=== PATIENT | male | born 1960 | race Caucasian/White ===

== ENCOUNTER 2017-03-30 09:53 | Inpatient (IN) | payer BC, OTHER ==
[~2017-03-30] VITALS: Ht 170.2 cm; Wt 150.1 kg
--- NOTE | 2017-03-30 10:18 | EMERGENCY ROOM VISIT NOTE ---
History First contact with patient: 10:04 (Christiano Thomas PA-C) Chief Complaint: LEG PAIN,LEG INJURY Stated Complaint: LEG PAIN History of Present Illness The patient is a 56 year old male who presents to the Emergency Room via private vehicle with complaints of "leg pain, leg injury ankle. 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 Type II diabetic, and is concerned he may have a clot, or infection. He states that the pain has been progressing. He denies any chest pain, or shortness of breath. There is a strong family history of DVT. (Christiano Thomas PA-C) Review of Systems A complete 10-point Review of Systems was discussed with the patient, with pertinent positives and negatives listed in the History of Present Illness. All remaining Review of Systems questions can be considered negative unless otherwise specified. (Christiano Thomas PA-C) Past Medical/Surgical History Medical Problems: (1) Cellulitis (Mini Cota DO) Type 2 dm (Christiano Thomas PA-C) Family History DVT (Christiano Thomas PA-C) Social History Smoking Status: Current Every Day Smoker Pt. is a truck driver supervisor (Christiano Thomas PA-C) Current/Historical Medications Scheduled Aspirin (Aspirin Ec), 81 MG PO DAILY Atorvastatin (Atorvastatin Calcium), 40 MG PO DAILY Irbesartan-Hydrochlorothiazide (Avalide), 1 TAB PO DAILY Metformin HCl (Metformin HCl), 1,000 MG PO BIDM Multiple Vitamins W/ Minerals (Centrum Silver), 1 TAB PO DAILY Spironolactone (Aldactone), 25 MG PO DAILY Tamsulosin Hcl (Flomax), 0.4 MG PO DAILY Physical Exam Vital Signs Date Time Temp Pulse Resp B/P (MAP) Pulse Ox O2 Delivery O2 Flow Rate FiO2 03/30/17 12:56 20 98/43 95 03/30/17 11:36 80 20 116/71 95 Room Air 03/30/17 09:58 36.7 97 20 125/71 94 Room Air (Mini Cota DO) Physical Exam VITAL SIGNS - Vital signs and nursing notes were reviewed. Stable. GENERAL - 56-year-old male appearing his stated age who is in no acute distress. Communicates well with provider and answers questions appropriately. SKIN - R anterior murray erythema. HEAD - NC/AT. EYES - Sclera anicteric. EARS - No deformities of external structures noted on gross examination bilaterally. NOSE - Midline and without cyanosis. No epistaxis or purulent drainage noted. MOUTH/OROPHARYNX - Without perioral cyanosis. NECK - Neck with FROM. Supple to palpation. CARDIAC - RRR with S1/S2. No murmur, rubs, or gallops appreciated. EXTREMITIES - No clubbing or peripheral cyanosis. No pretibial edema present. There is a right anterior murray erythematous rash. Calf tenderness. +5/5 strength noted in UE/LE bilaterally. NEUROLOGIC - Cranial nerves II through XII grossly intact. Sensory intact to light touch throughout. (Christiano Thomas PA-C) Medical Decision & Procedures ER Provider Diagnostic Interpretation: R VENOUS DOPP LOWER EXT UNILAT HISTORY: 56 years-old Male R leg erythema, edema, pain acute right leg pain and edema COMPARISON: None available TECHNIQUE: Multiple real-time sonographic images of the right lower extremity deep venous system were obtained assessing grayscale appearance and color flow. FINDINGS: There is normal flow, compressibility, phasicity and augmentation within the right lower extremity deep venous system. There is minimal linear increased echogenicity within the proximal aspect of the popliteal vein. IMPRESSION: 1. No sonographic evidence of occlusive deep venous thrombosis within the right lower extremity. 2. Minimal linear increased echogenicity within the proximal aspect of the popliteal vein is suspicious for fibrin stranding from chronic deep venous thrombosis. The above report was generated using voice recognition software. It may contain grammatical, syntax or spelling errors. Electronically signed by: Tarun Barrios M.D. 03/30/2017 11:19 AM Dictated Date/Time: 03/30/2017 11:17 AM (Christiano Thomas PA-C) Laboratory Results 03/30/17 10:10 Red Blood Count 4.57, Mean Corpuscular Volume 81.8, Mean Corpuscular Hemoglobin 28.2, Mean Corpuscular Hemoglobin Concent 34.5, Mean Platelet Volume 9.5, Neutrophils (%) (Auto) 84.5, Lymphocytes (%) (Auto) 8.2, Monocytes (%) (Auto) 6.6, Eosinophils (%) (Auto) 0.2, Basophils (%) (Auto) 0.2, Neutrophils # (Auto) 16.52, Lymphocytes # (Auto) 1.61, Monocytes # (Auto) 1.29, Eosinophils # (Auto) 0.03, Basophils # (Auto) 0.04 03/30/17 10:10 Test 03/30/17 10:10 03/30/17 11:06 White Blood Count 19.55 K/uL (4.8-10.8) Red Blood Count 4.57 M/uL (4.7-6.1) Hemoglobin 12.9 g/dL (14.0-18.0) Hematocrit 37.4 % (42-52) Mean Corpuscular Volume 81.8 fL (80-100) Mean Corpuscular Hemoglobin 28.2 pg (25-34) Mean Corpuscular Hemoglobin Concent 34.5 g/dl (32-36) Platelet Count 265 K/uL (130-400) Mean Platelet Volume 9.5 fL (7.4-10.4) Neutrophils (%) (Auto) 84.5 % Lymphocytes (%) (Auto) 8.2 % Monocytes (%) (Auto) 6.6 % Eosinophils (%) (Auto) 0.2 % Basophils (%) (Auto) 0.2 % Neutrophils # (Auto) 16.52 K/uL (1.4-6.5) Lymphocytes # (Auto) 1.61 K/uL (1.2-3.4) Monocytes # (Auto) 1.29 K/uL (0.11-0.59) Eosinophils # (Auto) 0.03 K/uL (0-0.5) Basophils # (Auto) 0.04 K/uL (0-0.2) RDW Standard Deviation 47.0 fL (36.4-46.3) RDW Coefficient of Variation 15.8 % (11.5-14.5) Immature Granulocyte % (Auto) 0.3 % Immature Granulocyte # (Auto) 0.06 K/uL (0.00-0.02) Anion Gap 9.0 mmol/L (3-11) Est Creatinine Clear Calc Drug Dose 116.8 ml/min Estimated GFR () 96.1 Estimated GFR (Non- 82.9 BUN/Creatinine Ratio 13.5 (10-20) Calcium Level 8.8 mg/dl (8.5-10.1) Total Bilirubin 0.8 mg/dl (0.2-1) Aspartate Amino Transf (AST/SGOT) 14 U/L (15-37) Alanine Aminotransferase (ALT/SGPT) 36 U/L (12-78) Alkaline Phosphatase 88 U/L (45-117) Total Protein 7.1 gm/dl (6.4-8.2) Albumin 3.3 gm/dl (3.4-5.0) Globulin 3.8 gm/dl (2.5-4.0) Albumin/Globulin Ratio 0.9 (0.9-2) Bedside Lactic Acid Venous 1.37 mmol/L (0.90-1.70) (Mini Cota, ) Medications Administered Medications (Trade) Dose Ordered Sig/Obie Route Start Time Stop Time Status Last Admin Dose Admin Acetaminophen (Tylenol Tab) 500 mg NOW STAT PO 03/30/17 11:13 03/30/17 11:14 DC 03/30/17 11:45 500 MG Piperacillin Sod/ Tazobactam Sod (Zosyn Iv) 4.5 gm NOW STAT IV 03/30/17 11:32 03/30/17 11:34 DC 03/30/17 11:58 4.5 GM Vancomycin HCl 2750 mg/Sodium Chloride 555 ml @ 208.125 mls/hr NOW ONCE IV 03/30/17 11:45 03/30/17 14:24 DC 03/30/17 12:55 208.125 MLS/HR (Mini Cota, ) Medical Decision Patient was seen and evaluated as above. After obtaining a thorough history and physical examination IV access was initiated, and the above workup was performed. On exam was obtained and reveals no acute DVT, however there is question about underlying DVT. Clinically he has cellulitis. White blood cell count high at 19.55, there is an anemia with hemoglobin of 12.9. Patient's metabolic panel reveals creatinine of 1.02, no evidence of liver failure. Point care lactic was normal. At this time I believe the patient should be admitted for further evaluation and management. He was given vancomycin and Zosyn as well as Tylenol. Case was discussed with the attending physician, and subsequent with the hospitalist. Please refer to further documentation regarding his stay. In evaluation treatment this patient the following differential diagnoses were entertained: DVT, cellulitis, abscess, among others. (Christiano Thomas, PA-C) Impression Primary Impression: Cellulitis Additional Impression: Anemia Departure Information Dispostion Admitted as an inpatient Condition FAIR Patient Instructions My [facility] History I did see this pt, however not in correlation to this PA as he is supervised by the ED physician. PA has left for the evening, I did make ED charge nurse aware of this error. (Mini Cota, ) Assessment/Plan 56 y/o M who was admitted on 03/30 for R LE cellulitis R LE cellulitis: started on vanco/zosyn in the ED, will change to ceftriaxone given this is pt's first episode of cellulitis LE US neg for acute DVT WBC elevated Blood cx pending ?? chronic LE DVT: noted on US, no hx of prior Discussed with Makayla Clarke of vasc surgery, Dr. Doe is out of town until tomorrow but they will review images at that time Formal c/s will need placed if there is concern that will need addressed in our system given pt is from [place] and can likely f/u with this with providers in his area upon return Pt does take aspirin 81mg daily at baseline ?? of chronic DVT becoming painful due to inflammation related to infection?? Color of LE is WNL with good pulses and warm to touch. I do not think this is an acute concern at that time DM: BS in ED is 118 Does not check at home as he is on PO meds only A1c pending Will continue metformin given no issues with PO + SSI PRN HTN: continue home meds CAD: s/p stent 1.5-2 years ago Continue aspirin MIRA: has home CPAP with him, can use BPH: continue home meds Tobacco use: decline nicotine patch at this time PRN Other: Full code SCDs on L for DVT proph DM AHA diet CM: Pt is a truck driver supervisor from [place] and planning to return to that area for further care once able for d/c. (Mini Cota DO) Problem Qualifiers
[2017-03-30] MEDS ORDERED: GLC500 PO (10:38)
[2017-03-30] MEDS ORDERED: IRBE-41 PO (10:38)
[2017-03-30] MEDS ORDERED: SPIR25TA PO (10:38)
[2017-03-30] MEDS ORDERED: TAMS0.4C38 PO (10:38)
[2017-03-30] MEDS ORDERED: MULTCHW PO (10:38)
[2017-03-30] MEDS ORDERED: ASPI81TA28 PO (10:38)
[2017-03-30] MEDS ORDERED: LPT40 PO (10:38)
[2017-03-30 10:56] LABS: BASO % 0.2 %; BASO ABS # 0.04 K/uL (0-0.2); COMPLETE YES; EOS % 0.2 %; HEMATOCRIT 37.4 % (42-52); IG% 0.3 %; LYMPH % 8.2 %; LYMPH ABS # 1.61 K/uL (1.2-3.4); MEAN CELL VOLUME 81.8 fL (80-100); MEAN CORPUSCULAR HEMOGLOBIN 28.2 pg (25-34); MEAN CORPUSCULAR HGB CONC 34.5 g/dl (32-36); MEAN PLATELET VOLUME 9.5 fL (7.4-10.4); MONO % 6.6 %; NEUT % 84.5 %; PLATELET COUNT 265 K/uL (130-400); RED BLOOD COUNT 4.57 M/uL (4.7-6.1); WHITE BLOOD COUNT 19.55 K/uL (4.8-10.8)
[2017-03-30 11:10] LABS: BUN/CREATININE RATIO 13.5 (10-20); CALCIUM 8.8 mg/dl (8.5-10.1); CREATININE 1.02 mg/dl (0.60-1.40); POTASSIUM 3.6 mmol/L (3.5-5.1)
[2017-03-30 11:12] LABS: ALB/GLOB RATIO 0.9 (0.9-2)
[2017-03-30] MEDS ORDERED: ACETAMINOPHEN 500 MG TAB PO STA (11:13)
--- NOTE | 2017-03-30 11:21 | DIAGNOSTIC IMAGING REPORT ---
R VENOUS DOPP LOWER EXT UNILAT HISTORY: 56 years-old Male R leg erythema, edema, pain acute right leg pain and edema COMPARISON: None available TECHNIQUE: Multiple real-time sonographic images of the right lower extremity deep venous system were obtained assessing grayscale appearance and color flow. FINDINGS: There is normal flow, compressibility, phasicity and augmentation within the right lower extremity deep venous system. There is minimal linear increased echogenicity within the proximal aspect of the popliteal vein. IMPRESSION: 1. No sonographic evidence of occlusive deep venous thrombosis within the right lower extremity. 2. Minimal linear increased echogenicity within the proximal aspect of the popliteal vein is suspicious for fibrin stranding from chronic deep venous thrombosis. The above report was generated using voice recognition software. It may contain grammatical, syntax or spelling errors. Electronically signed by: Tarun Barrios M.D. 03/30/2017 11:19 AM Dictated Date/Time: 03/30/2017 11:17 AM
[2017-03-30] MEDS ORDERED: VANCOMYCIN INJ 2,750 MG in SODIUM CHLORIDE 0.9% 250ML 250 ML IV STA (11:32)
[2017-03-30] MEDS ORDERED: PIPERACILLIN/TAZOBACTAM 4.5 GM/100ML D5W IV STA (11:32)
[2017-03-30] MEDS ORDERED: VANCOMYCIN INJ 2,750 MG in SODIUM CHLORIDE 0.9% 500ML 500 ML IV ONE (11:45)
[2017-03-30] MEDS ORDERED: DEXTROSE 50% 50 ML SYR IV PRN (13:30)
[2017-03-30] MEDS ORDERED: GLUCAGON FOR INJ 1 MG VIAL SQ PRN (13:30)
[2017-03-30] MEDS ORDERED: GLUCOSE 10 TABS/TUBE PO PRN (13:30)
[2017-03-30] MEDS ORDERED: GLUCOSE 40% GEL 15 GM TUBE PO PRN (13:30)
[2017-03-30] MEDS ORDERED: MAGNESIUM HYDROXIDE SUSP 30 ML UDC PO PRN (13:30)
[2017-03-30] MEDS ORDERED: ONDANSETRON INJ 2 MG/ML 2 ML VIAL IV PRN (13:30)
[2017-03-30] MEDS ORDERED: ACETAMINOPHEN 325 MG TAB PO PRN (13:30)
[2017-03-30] MEDS ORDERED: NICOTINE 21 MG/24 HR TDSY TD PRN (14:00)
--- NOTE | 2017-03-30 14:08 | History and Physical ---
History & Physical Date & Time of Service: Mar 30, 2017 at 13:48 Chief Complaint: Leg Pain Primary Care Physician: No Doctor, Assigned History of Present Illness Source: patient 56 y/o M c/o DVT. 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 He is limited in his ability to ambulate and get in and out of his truck because the pain was so bad. He thought he would sleep and see how he felt in the morning, but when he woke this AM his pain was worse so he called 911 to bring him to the ED. Pt states that he has never had pain in his LE like this in the past. He had difficulty ambulating to the bathroom in the ED due to this. His pain is mostly in his calf. He states that he had no redness or swelling until last night. He had no issues getting into or out of his truck until last night. He was concerned because of a FH of DVT. Pt feels well otherwise. When asked about his wheeze, he states that he does get this on occasion, but takes no inhalers. He has no known dx of COPD or asthma to his knowledge. Pt is DM but on PO medications only. He does not check his BS routinely. He is compliant with his medications and his CPAP. Past Medical/Surgical History DM HTN CAD s/p stent 1.5-2 yrs ago BPH MIRA Family History Hx of DVT Social History Smoking Status: Current Every Day Smoker (1ppd) Alcohol Use: 2- 3 beers per month Drug Use: none Allergies Coded Allergies: No Known Allergies (Unverified , 03/30/17) Home Medications Scheduled Aspirin (Aspirin Ec), 81 MG PO DAILY Atorvastatin (Atorvastatin Calcium), 40 MG PO DAILY Irbesartan-Hydrochlorothiazide (Avalide), 1 TAB PO DAILY Metformin HCl (Metformin HCl), 1,000 MG PO BIDM Multiple Vitamins W/ Minerals (Centrum Silver), 1 TAB PO DAILY Spironolactone (Aldactone), 25 MG PO DAILY Tamsulosin Hcl (Flomax), 0.4 MG PO DAILY Review of Systems Pertinent positives and negatives reviewed in HPI--all others negative Physical Exam Vital Signs Date Time Temp Pulse Resp B/P (MAP) Pulse Ox O2 Delivery O2 Flow Rate FiO2 10/23/17 12:56 20 98/43 95 03/30/17 11:36 80 20 116/71 95 Room Air 03/30/17 09:58 36.7 97 20 125/71 94 Room Air General Appearance: no apparent distress, + obese Head: normocephalic, atraumatic Eyes: normal inspection, EOMI ENT: hearing grossly normal Neck: supple Respiratory/Chest: no respiratory distress, + wheezing (expiratory in all pinto) Cardiovascular: regular rate, rhythm, normal peripheral pulses Abdomen/GI: non tender, soft Extremities/Musculoskelatal: + calf tenderness (R sided), + swelling (1+ nonpitting) Neurologic/Psych: alert, normal mood/affect, oriented x 3 Skin: warm/dry, + pertinent finding (R LE redness noted anteriorly) Diagnostics Laboratory Results Results Past 24 Hours Test 03/30/17 10:10 03/30/17 10:38 03/30/17 11:06 Range/Units White Blood Count 19.55 4.8-10.8 K/uL Red Blood Count 4.57 4.7-6.1 M/uL Hemoglobin 12.9 14.0-18.0 g/dL Hematocrit 37.4 42-52 % Mean Corpuscular Volume 81.8 80-100 fL Mean Corpuscular Hemoglobin 28.2 25-34 pg Mean Corpuscular Hemoglobin Concent 34.5 32-36 g/dl Platelet Count 265 130-400 K/uL Mean Platelet Volume 9.5 7.4-10.4 fL Neutrophils (%) (Auto) 84.5 % Lymphocytes (%) (Auto) 8.2 % Monocytes (%) (Auto) 6.6 % Eosinophils (%) (Auto) 0.2 % Basophils (%) (Auto) 0.2 % Neutrophils # (Auto) 16.52 1.4-6.5 K/uL Lymphocytes # (Auto) 1.61 1.2-3.4 K/uL Monocytes # (Auto) 1.29 0.11-0.59 K/uL Eosinophils # (Auto) 0.03 0-0.5 K/uL Basophils # (Auto) 0.04 0-0.2 K/uL RDW Standard Deviation 47.0 36.4-46.3 fL RDW Coefficient of Variation 15.8 11.5-14.5 % Immature Granulocyte % (Auto) 0.3 % Immature Granulocyte # (Auto) 0.06 0.00-0.02 K/uL Sodium Level 137 136-145 mmol/L Potassium Level 3.6 3.5-5.1 mmol/L Chloride Level 104 98-107 mmol/L Carbon Dioxide Level 25 21-32 mmol/L Anion Gap 9.0 3-11 mmol/L Blood Urea Nitrogen 14 7-18 mg/dl Creatinine 1.02 0.60-1.40 mg/dl Est Creatinine Clear Calc Drug Dose 116.8 ml/min Estimated GFR () 96.1 Estimated GFR (Non- 82.9 BUN/Creatinine Ratio 13.5 10-20 Random Glucose 118 70-99 mg/dl Calcium Level 8.8 8.5-10.1 mg/dl Total Bilirubin 0.8 0.2-1 mg/dl Aspartate Amino Transf (AST/SGOT) 14 15-37 U/L Alanine Aminotransferase (ALT/SGPT) 36 12-78 U/L Alkaline Phosphatase 88 45-117 U/L Total Protein 7.1 6.4-8.2 gm/dl Albumin 3.3 3.4-5.0 gm/dl Globulin 3.8 2.5-4.0 gm/dl Albumin/Globulin Ratio 0.9 0.9-2 Bedside Lactic Acid Venous 1.10 1.37 0.90-1.70 mmol/L Microbiology Results 03/30/17 Blood Culture, Received Pending 03/30/17 Blood Culture, Received Pending Diagnostic Radiology LE US: neg for acute DVT but question of chronic DVT Impression Assessment and Plan 56 y/o M who was admitted on 03/30 for R LE cellulitis R LE cellulitis: started on vanco/zosyn in the ED, will change to ceftriaxone given this is pt's first episode of cellulitis LE US neg for acute DVT WBC elevated Blood cx pending ?? chronic LE DVT: noted on US, no hx of prior Discussed with Makayla Clarke of vasc surgery, Dr. Doe is out of town until tomorrow but they will review images at that time Formal c/s will need placed if there is concern that will need addressed in our system given pt is from [place] and can likely f/u with this with providers in his area upon return Pt does take aspirin 81mg daily at baseline ?? of chronic DVT becoming painful due to inflammation related to infection?? Color of LE is WNL with good pulses and warm to touch. 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 Level of Care Med/Surg Resuscitation Status FULL RESUSCITATION VTE Prophylaxis VTE Risk Assessment Done? Y/N: Yes Risk Level: Low
[2017-03-30] MEDS: ALBUT/IPRATROP 3MG/0.5MG NEB 3 ML VIAL INH SCH ×2 (15:37→19:00)
[2017-03-30 15:38] VITALS: PULSE 82; O2SAT 93
[2017-03-30] MEDS ORDERED: NURSING VERBAL MED ORDER ONE (15:45)
[2017-03-30 15:48] VITALS: BP_SYST 82; BP_SYST 88; BP_DIAS 41; BP_DIAS 54; PULSE 81; TEMP 36.7; O2SAT 96; BMI 51.8
[2017-03-30] MEDS ORDERED: SODIUM CHLORIDE 0.9% 500ML 500 ML IV ONE (16:15)
[2017-03-30 17:18] VITALS: BP 115/72; PULSE 88; O2SAT 93
[2017-03-30] MEDS: METFORMIN HCL 500 MG TAB PO SCH (17:22)
[2017-03-30] MEDS: INSULIN ASPART 100 UNITS/ML 3 ML PEN SC SCH ×2 (17:22→21:00)
[2017-03-30] MEDS: CEFTRIAXONE SOD INJ 500 MG in DEXTROSE 5% 50ML 50 ML IV SCH (18:23)
[2017-03-30] MEDS: IBUPROFEN 800 MG TAB PO PRN (18:28)
[2017-03-30 19:00] VITALS: PULSE 82; O2SAT 94
[2017-03-30 20:00] VITALS: O2SAT 94
[2017-03-30 23:37] VITALS: BP 113/66; PULSE 76; TEMP 36.6; O2SAT 93
[2017-03-31] VITALS (8 sets, daily range): BP systolic 103–106; BP diastolic 53–59; PULSE 66–92; TEMP 36.6–36.9; O2SAT 92–97; Ht 170.2 cm; Wt 150.1 kg
[2017-03-31 06:03] LABS: HEMATOCRIT 37.1 % (42-52); MEAN CELL VOLUME 82.4 fL (80-100); MEAN CORPUSCULAR HEMOGLOBIN 26.9 pg (25-34); MEAN CORPUSCULAR HGB CONC 32.6 g/dl (32-36); MEAN PLATELET VOLUME 9.5 fL (7.4-10.4); PLATELET COUNT 222 K/uL (130-400); WHITE BLOOD COUNT 10.18 K/uL (4.8-10.8)
[2017-03-31] MEDS: ALBUT/IPRATROP 3MG/0.5MG NEB 3 ML VIAL INH SCH ×4 (06:57→19:10)
[2017-03-31 07:23] LABS: ESTIMATED AVERAGE GLUCOSE 137 mg/dl; HA1C FLAG Normal (Normal)
--- NOTE | 2017-03-31 07:46 | EMERGENCY ROOM VISIT NOTE ---
History First contact with patient: 10:04 Chief Complaint: LEG PAIN,LEG INJURY Stated Complaint: CELLULITIS History of Present Illness The patient is a 56 year old male who presents to the Emergency Room via private vehicle with complaints of "leg pain, leg injury ankle. 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 Type II diabetic, and is concerned he may have a clot, or infection. He states that the pain has been progressing. He denies any chest pain, or shortness of breath. There is a strong family history of DVT. Review of Systems A complete 10-point Review of Systems was discussed with the patient, with pertinent positives and negatives listed in the History of Present Illness. All remaining Review of Systems questions can be considered negative unless otherwise specified. Past Medical/Surgical History Medical Problems: (1) Cellulitis Type 2 DM Family History Hx of DVT Social History Smoking Status: Current Every Day Smoker Drug Use: none Pt. is a regional tanker truck driver Current/Historical Medications Scheduled Aspirin (Aspirin Ec), 81 MG PO DAILY Atorvastatin (Atorvastatin Calcium), 40 MG PO DAILY Irbesartan-Hydrochlorothiazide (Avalide), 1 TAB PO DAILY Metformin HCl (Metformin HCl), 1,000 MG PO BIDM Multiple Vitamins W/ Minerals (Centrum Silver), 1 TAB PO DAILY Spironolactone (Aldactone), 25 MG PO DAILY Tamsulosin Hcl (Flomax), 0.4 MG PO DAILY Physical Exam Vital Signs Date Time Temp Pulse Resp B/P (MAP) Pulse Ox O2 Delivery O2 Flow Rate FiO2 03/30/17 12:56 20 98/43 95 03/30/17 11:36 80 20 116/71 95 Room Air 03/30/17 09:58 36.7 97 20 125/71 94 Room Air Physical Exam VITAL SIGNS - Vital signs and nursing notes were reviewed. Stable. GENERAL - 56-year-old male appearing his stated age who is in no acute distress. Communicates well with provider and answers questions appropriately. SKIN - R anterior murray erythema. HEAD - NC/AT. EYES - Sclera anicteric. EARS - No deformities of external structures noted on gross examination bilaterally. NOSE - Midline and without cyanosis. No epistaxis or purulent drainage noted. MOUTH/OROPHARYNX - Without perioral cyanosis. NECK - Neck with FROM. Supple to palpation. CARDIAC - RRR with S1/S2. No murmur, rubs, or gallops appreciated. EXTREMITIES - No clubbing or peripheral cyanosis. No pretibial edema present. There is a right anterior murray erythematous rash. Calf tenderness. +5/5 strength noted in UE/LE bilaterally. NEUROLOGIC - Cranial nerves II through XII grossly intact. Sensory intact to light touch throughout. Medical Decision & Procedures ER Provider Diagnostic Interpretation: R VENOUS DOPP LOWER EXT UNILAT HISTORY: 56 years-old Male R leg erythema, edema, pain acute right leg pain and edema COMPARISON: None available TECHNIQUE: Multiple real-time sonographic images of the right lower extremity deep venous system were obtained assessing grayscale appearance and color flow. FINDINGS: There is normal flow, compressibility, phasicity and augmentation within the right lower extremity deep venous system. There is minimal linear increased echogenicity within the proximal aspect of the popliteal vein. IMPRESSION: 1. No sonographic evidence of occlusive deep venous thrombosis within the right lower extremity. 2. Minimal linear increased echogenicity within the proximal aspect of the popliteal vein is suspicious for fibrin stranding from chronic deep venous thrombosis. The above report was generated using voice recognition software. It may contain grammatical, syntax or spelling errors. Electronically signed by: Tarun Barrios M.D. 03/30/2017 11:19 AM Dictated Date/Time: 03/30/2017 11:17 AM Laboratory Results 03/30/17 10:10 Test 03/30/17 10:10 03/30/17 11:06 Immature Granulocyte % (Auto) 0.3 % White Blood Count 19.55 K/uL (4.8-10.8) Red Blood Count 4.57 M/uL (4.7-6.1) Hemoglobin 12.9 g/dL (14.0-18.0) Hematocrit 37.4 % (42-52) Mean Corpuscular Volume 81.8 fL (80-100) Mean Corpuscular Hemoglobin 28.2 pg (25-34) Mean Corpuscular Hemoglobin Concent 34.5 g/dl (32-36) Platelet Count 265 K/uL (130-400) Mean Platelet Volume 9.5 fL (7.4-10.4) Neutrophils (%) (Auto) 84.5 % Lymphocytes (%) (Auto) 8.2 % Monocytes (%) (Auto) 6.6 % Eosinophils (%) (Auto) 0.2 % Basophils (%) (Auto) 0.2 % Neutrophils # (Auto) 16.52 K/uL (1.4-6.5) Lymphocytes # (Auto) 1.61 K/uL (1.2-3.4) Monocytes # (Auto) 1.29 K/uL (0.11-0.59) Eosinophils # (Auto) 0.03 K/uL (0-0.5) Basophils # (Auto) 0.04 K/uL (0-0.2) Immature Granulocyte # (Auto) 0.06 K/uL (0.00-0.02) Anion Gap 9.0 mmol/L (3-11) Est Creatinine Clear Calc Drug Dose 116.8 ml/min Estimated GFR () 96.1 Estimated GFR (Non- 82.9 BUN/Creatinine Ratio 13.5 (10-20) Calcium Level 8.8 mg/dl (8.5-10.1) Total Bilirubin 0.8 mg/dl (0.2-1) Aspartate Amino Transf (AST/SGOT) 14 U/L (15-37) Alanine Aminotransferase (ALT/SGPT) 36 U/L (12-78) Alkaline Phosphatase 88 U/L (45-117) Total Protein 7.1 gm/dl (6.4-8.2) Albumin 3.3 gm/dl (3.4-5.0) Globulin 3.8 gm/dl (2.5-4.0) Albumin/Globulin Ratio 0.9 (0.9-2) Bedside Lactic Acid Venous 1.37 mmol/L (0.90-1.70) Medications Administered Medications (Trade) Dose Ordered Sig/Obie Route Start Time Stop Time Status Last Admin Dose Admin Acetaminophen (Tylenol Tab) 500 mg NOW STAT PO 03/30/17 11:13 03/30/17 11:14 DC 03/30/17 11:45 500 MG Piperacillin Sod/ Tazobactam Sod (Zosyn Iv) 4.5 gm NOW STAT IV 03/30/17 11:32 03/30/17 11:34 DC 03/30/17 11:58 4.5 GM Vancomycin HCl 2750 mg/Sodium Chloride 555 ml @ 208.125 mls/hr NOW ONCE IV 03/30/17 11:45 03/30/17 14:24 DC 03/30/17 12:55 208.125 MLS/HR Medical Decision Patient was seen and evaluated as above. After obtaining a thorough history and physical examination IV access was initiated, and the above workup was performed. On exam was obtained and reveals no acute DVT, however there is question about underlying DVT. Clinically he has cellulitis. White blood cell count high at 19.55, there is an anemia with hemoglobin of 12.9. Patient's metabolic panel reveals creatinine of 1.02, no evidence of liver failure. Point care lactic was normal. At this time I believe the patient should be admitted for further evaluation and management. He was given vancomycin and Zosyn as well as Tylenol. Case was discussed with the attending physician, and subsequent with the hospitalist. Please refer to further documentation regarding his stay. In evaluation treatment this patient the following differential diagnoses were entertained: DVT, cellulitis, abscess, among others. Impression Primary Impression: Cellulitis Additional Impression: Anemia Departure Information Dispostion Admitted as an inpatient Condition FAIR Referrals No Doctor, Assigned (PCP) Forms HOME CARE DOCUMENTATION FORM, IMPORTANT VISIT INFORMATION Patient Instructions My [facility] Problem Qualifiers
[2017-03-31] MEDS ORDERED: NON-FORMULARY MEDICATION (Irbesartan-Hydrochlorothiazide (Avalide) 1 TAB) PO SCH (08:00)
[2017-03-31] MEDS: SPIRONOLACTONE 25 MG TAB PO SCH (08:13)
[2017-03-31] MEDS: IRBESARTAN 150 MG TAB PO SCH (08:13)
[2017-03-31] MEDS: HYDROCHLOROTHIAZIDE 25 MG TAB PO SCH (08:14)
[2017-03-31] MEDS: TAMSULOSIN HCL 0.4 MG CAP PO SCH (08:15)
[2017-03-31] MEDS: ASPIRIN 81 MG ECTAB PO SCH (08:15)
[2017-03-31] MEDS: METFORMIN HCL 500 MG TAB PO SCH ×2 (08:15→17:05)
[2017-03-31] MEDS: ATORVASTATIN 40 MG TAB PO SCH (08:16)
[2017-03-31] MEDS: CEROVITE ADV FORMULA TAB PO SCH (08:16)
[2017-03-31] MEDS: INSULIN ASPART 100 UNITS/ML 3 ML PEN SC SCH ×4 (08:20→19:53)
--- NOTE | 2017-03-31 10:54 | Medical Consult ---
Consultation Note Date of Service Mar 31, 2017. Consultation Note Was asked by Dr Cota to have Dr Doe review US films regarding possible chronic DVT. Upon review of images, the area of concern appears to be a thickened vein valve, not definite DVT. Would not anticoagulate this pt presently, daily 81mg ASA should be fine as long as there are no contraindications. Please call and place formal consult if needed.
--- NOTE | 2017-03-31 16:15 | Progress Note ---
Subjective Date of Service: Mar 31, 2017. Subjective Pt evaluation today including: conversation w/ patient, physical exam, chart review, lab review Patient is a 56 year old male who is here for cellulitis of his right lower leg. Patient states that he feels well, but has pain on ambulation. Patient has noticed a decrease of erythema of his right lower leg. Patient denies fever, chills, nausea, vomiting. Problem List Medical Problems: (1) Anemia Status: Acute Review of Systems Constitutional: No fever, No chills Respiratory: No cough, No sputum Cardiac: No chest pain, No orthopnea Abdomen: No pain, No nausea Musculoskeletal: No joint pain Neurologic: No memory loss, No paralysis Psychiatric: No depression symptoms, No anhedonism Skin: No rash, No itch All Other Systems: Reviewed and Negative Objective Vital Signs Date Time Temp Pulse Resp B/P (MAP) Pulse Ox O2 Delivery O2 Flow Rate FiO2 03/31/17 15:18 36.9 87 22 106/59 (75) 92 Room Air 03/31/17 15:09 92 16 94 Room Air 03/31/17 11:06 83 14 95 Room Air 03/31/17 10:06 Room Air 03/31/17 07:34 36.6 68 22 103/53 (70) 97 Room Air 03/31/17 06:59 66 14 97 Room Air 03/31/17 00:00 94 Room Air CPAP 03/30/17 23:37 36.6 76 19 113/66 (82) 93 BiPAP 03/30/17 20:00 94 Room Air CPAP 03/30/17 19:00 82 14 94 Room Air 03/30/17 17:18 88 20 115/72 (86) 93 Room Air Physical Exam General Appearance: WD/WN, no apparent distress Neck: supple, no adenopathy Respiratory/Chest: chest non-tender, lungs clear, normal breath sounds, no accessory muscle use Cardiovascular: regular rate, rhythm, no edema, no gallop Abdomen: normal bowel sounds, non tender, soft Extremities: normal range of motion Skin: + pertinent finding (right lower extremity: erythema. It has decreased compared to yesterday as the edges were marked with a marker.) Lymphatic: no adenopathy Laboratory Results Last 24 Hours Test 03/30/17 16:47 03/30/17 19:59 03/31/17 05:26 03/31/17 05:30 Bedside Glucose 121 mg/dl 145 mg/dl White Blood Count 10.18 K/uL Red Blood Count 4.50 M/uL Hemoglobin 12.1 g/dL Hematocrit 37.1 % Mean Corpuscular Volume 82.4 fL Mean Corpuscular Hemoglobin 26.9 pg Mean Corpuscular Hemoglobin Concent 32.6 g/dl RDW Standard Deviation 47.9 fL RDW Coefficient of Variation 15.8 % Platelet Count 222 K/uL Mean Platelet Volume 9.5 fL Estimated Average Glucose 137 mg/dl Hemoglobin A1c 6.4 % Test 03/31/17 07:47 03/31/17 11:32 03/31/17 15:55 Bedside Glucose 99 mg/dl 115 mg/dl 105 mg/dl Assessment and Plan Right lower extremity cellulitis in a 56 year old male; admitted on 03/30 R LE cellulitis: started on vanco/zosyn in the ED, was changed to ceftriaxone given this is pt's first episode of cellulitis. This is day 2 of ceftriaxone. Will add augmentin tonight and continue ceftriaxone for 1 more dose. LE US neg for acute DVT WBC improved Blood cx pending. So far negative If patient continues to improve will discharge in AM. IMPRESSION of doppler U/S: 1. No sonographic evidence of occlusive deep venous thrombosis within the right lower extremity. 2. Minimal linear increased echogenicity within the proximal aspect of the popliteal vein is suspicious for fibrin stranding from chronic deep venous thrombosis. DM: BS stable HTN: continue home meds. A1C is at goal. CAD: s/p stent 1.5-2 years ago Continue aspirin MIRA: has home CPAP with him, can use BPH: continue home meds Tobacco use: decline nicotine patch at this time PRN Other: Full code SCDs on L for DVT proph DM AHA diet Continued [facility] stay due to: other (IV antibiotics, pain on ambulation) Discharge planning: home
[2017-03-31] MEDS: AMOXICILLIN/CLAVULANATE TAB 875 MG TAB PO SCH (17:05)
[2017-03-31] MEDS ORDERED: NURSING VERBAL MED ORDER ONE (19:00)
[2017-03-31] MEDS ORDERED: COUGH DROP (SUGAR FREE) LOZ 24 LOZ/1 BOX PO PRN (19:30)
[2017-03-31] MEDS: BENZONATATE 100MG CAP PO SCH (19:52)
[2017-03-31] MEDS: CEFTRIAXONE SOD INJ 500 MG in DEXTROSE 5% 50ML 50 ML IV SCH (19:53)
[2017-04-01] VITALS (7 sets, daily range): BP systolic 116–122; BP diastolic 71–75; PULSE 66–85; TEMP 36.5–37.2; O2SAT 92–97
[2017-04-01] MEDS: ALBUT/IPRATROP 3MG/0.5MG NEB 3 ML VIAL INH SCH ×3 (06:53→15:06)
[2017-04-01] MEDS: IRBESARTAN 150 MG TAB PO SCH (08:12)
[2017-04-01] MEDS: SPIRONOLACTONE 25 MG TAB PO SCH (08:12)
[2017-04-01] MEDS: AMOXICILLIN/CLAVULANATE TAB 875 MG TAB PO SCH (08:12)
[2017-04-01] MEDS: BENZONATATE 100MG CAP PO SCH ×2 (08:13→13:54)
[2017-04-01] MEDS: METFORMIN HCL 500 MG TAB PO SCH (08:13)
[2017-04-01] MEDS: ATORVASTATIN 40 MG TAB PO SCH (08:13)
[2017-04-01] MEDS: TAMSULOSIN HCL 0.4 MG CAP PO SCH (08:13)
[2017-04-01] MEDS: HYDROCHLOROTHIAZIDE 25 MG TAB PO SCH (08:13)
[2017-04-01] MEDS: ASPIRIN 81 MG ECTAB PO SCH (08:13)
[2017-04-01] MEDS: IBUPROFEN 800 MG TAB PO PRN ×2 (08:14→13:55)
[2017-04-01] MEDS: INSULIN ASPART 100 UNITS/ML 3 ML PEN SC SCH ×2 (08:16→11:35)
[2017-04-01] MEDS: CEROVITE ADV FORMULA TAB PO SCH (13:54)
[2017-04-01] MEDS ORDERED: AMOX1TAB43 PO (14:32)
--- NOTE | 2017-04-01 14:34 | Discharge Instructions ---
Discharge Instructions Date of Service Apr 01, 2017. Admission Reason for Admission: Cellulitis Discharge Discharge Diagnosis / Problem: cellulitis on right lower extremity Discharge Goals Goal(s): Decrease discomfort, Improve function Activity Recommendations Activity Limitations: resume your previous activity . Instructions / Follow-Up Instructions / Follow-Up Raise leg up above level of heart 3 or 4 times a day for 30 minutes. Keep the infected area clean and dry. You can take a shower or bath but be sure to pat the area dry with a towel. F/U with PCP in 1 week/ Current Hospital Diet Patient's current hospital diet: Diabetes Type 2 Diet, AHA Diet (Heart Healthy) Discharge Diet Recommended Diet: AHA Diet (Heart Healthy), Diabetes Type 2 Diet Pending Studies Studies pending at discharge: no Laboratory Results Hemoglobin A1c Test 03/31/17 05:30 Range/Units Estimated Average Glucose 137 mg/dl Hemoglobin A1c 6.4 H 4.5-5.6 % Medical Emergencies . Who to Call and When: Medical Emergencies: If at any time you feel your situation is an emergency, please call 911 immediately. . Non-Emergent Contact Non-Emergency issues call your: Primary Care Provider Call Non-Emergent contact if: you have a fever, your pain is not controlled . . "Provider Documentation" section prepared by Willard Meraz. . VTE Core Measure Inpt VTE Proph given/why not?: SCD's
--- NOTE | 2017-04-02 13:07 | Discharge Summary ---
Discharge Summary Date of Service Apr 01, 2017. Discharge Summary Admission Date: Mar 30, 2017 at 13:32 Discharge Date: Apr 01, 2017 Discharge Disposition: Home Principal Diagnosis: Right lower extremity cellulitis Problems/Secondary Diagnoses: CAD DM2 Medication Reconciliation New Medications: Amoxicillin & Pot Clavulanate (Amoxicillin/Clavulanate P) 1 Tab Tab 875 MG PO BIDM for 8 Days, #16 TAB tAKE 1 TAB every 12 hours Continued Medications: Aspirin (Aspirin Ec) 81 Mg Tab 81 MG PO DAILY Atorvastatin (Atorvastatin Calcium) 40 Mg Tab 40 MG PO DAILY Irbesartan-Hydrochlorothiazide (Avalide) 1 Tab Tab 1 TAB PO DAILY 150-12.5MG Metformin HCl (Metformin HCl) 500 Mg Tab 1000 MG PO BIDM TWO 500 MG TABLETS PER DOSE Multiple Vitamins W/ Minerals (Centrum Silver) 1 Chw Chw 1 TAB PO DAILY Spironolactone (Aldactone) 25 Mg Tab 25 MG PO DAILY Tamsulosin Hcl (Flomax) 0.4 Mg Cap 0.4 MG PO DAILY Discharge Exam Review of Systems: Constitutional: No fever, No chills ENT: No hearing loss Respiratory: No cough, No sputum Cardiovascular: No chest pain, No orthopnea, No PND Abdomen: No pain, No nausea Musculoskeletal: No joint pain Neurologic: No memory loss Psychiatric: No depression symptoms, No anhedonism Physical Exam: General Appearance: WD/WN ENT: normal ENT inspection Neck: supple, no adenopathy Respiratory/Chest: chest non-tender, lungs clear, normal breath sounds Cardiovascular: regular rate, rhythm, no edema Abdomen / GI: normal bowel sounds, non tender, soft Extremities: + pertinent finding (decreased erythema on right lower extremity; no warmth, non tender to palpation.) Neurologic/Psychiatric: normal reflexes, oriented x 3 Lymphatic: no adenopathy Hospital Course Right lower extremity cellulitis in a 56 year old male; admitted on 03/30 R LE cellulitis: started on vanco/zosyn in the ED, was changed to ceftriaxone given this is pt's first episode of cellulitis. This is day 3 of antibiotic. Will continue Augmentin for 8 more days which suzy be about 10 days of antibiotics. LE US neg for acute DVT WBC improved Blood cx negative Patient is good for discharge. Patient was given care instructions of his cellulitis. (Explained on discharge instructions form) Patient will get a cab to [employer] his truck. IMPRESSION of doppler U/S: 1. No sonographic evidence of occlusive deep venous thrombosis within the right lower extremity. 2. Minimal linear increased echogenicity within the proximal aspect of the popliteal vein is suspicious for fibrin stranding from chronic deep venous thrombosis. DM: BS stable HTN: continue home meds. A1C is at goal. CAD: s/p stent 1.5-2 years ago Continue aspirin MIRA: has home CPAP with him, can use BPH: continue home meds Tobacco use: decline nicotine patch at this time PRN Other: Full code SCDs on L for DVT proph DM AHA diet Patient will f/u with PCP. Total Time Spent: Greater than 30 minutes This includes examination of the patient, discharge planning, medication reconciliation, and communication with other providers. Discharge Instructions Please refer to the electronic Patient Visit Report (Discharge Instructions) for additional information. Follow-Up F/U with PCP in 1 week. Additional Copies To Judah King
== END 2017-04-01 15:12 | disposition home or self-care (01) | DRG 603 ==
LOC: EDBD 09:53 → C.EDA 09:56 → C.4E 13:32 → ENRESERV 13:50
PROVIDERS: ADMIT Family Medicine; ATTEND Internal Medicine Sports Medicine
DX: L03.115 Cellulitis of right lower limb (principal); I82.501 Chronic embolism and thrombosis of unspecified deep veins of right lower extremity; Z68.43 Body mass index [BMI] 50.0-59.9, adult; E11.9 Type 2 diabetes mellitus without complications; I10 Essential (primary) hypertension; I25.10 Atherosclerotic heart disease of native coronary artery without angina pectoris; G47.33 Obstructive sleep apnea (adult) (pediatric); N40.0 Benign prostatic hyperplasia without lower urinary tract symptoms; F17.200 Nicotine dependence, unspecified, uncomplicated; E66.9 Obesity, unspecified; Z95.5 Presence of coronary angioplasty implant and graft; Z79.82 Long term (current) use of aspirin; Z79.84 Long term (current) use of oral hypoglycemic drugs; Z79.899 Other long term (current) drug therapy; Z83.2 Family history of diseases of the blood and blood-forming organs and certain disorders involving the immune mechanism